=== PATIENT | female | born 1960 | race African-American/Black ===

== ENCOUNTER 2021-08-16 20:05 | Emergency (ER) | payer OTHER ==
[2021-08-16 20:38] VITALS: BP 132/78; PULSE 82; TEMP 97.8; BMI 36.6
[2021-08-16] MEDS ORDERED: LIDOCAINE PATCH REMOVAL MC SCH (22:00)
[2021-08-16] MEDS ORDERED: DIPHTH,PERTUSS(ACELL),TET 0.5 ML DISP.SYRIN IM ONE ×2 (22:42→22:50)
[2021-08-16] MEDS ORDERED: LIDOCAINE 5% TOPICAL PATCH TP ONE (22:43)
[2021-08-16] MEDS ORDERED: LIDOCAINE 5% TOPICAL PATCH ONE (22:49)
== END 2021-08-17 03:25 | disposition home or self-care (01) ==
LOC: JER 20:05
PROC: 2W3DX1Z Immobilization of Left Lower Arm using Splint (ICD-10-PCS; principal; 2021-08-16)
PROC: 3E0234Z Introduction of Serum, Toxoid and Vaccine into Muscle, Percutaneous Approach (ICD-10-PCS; 2021-08-16)
DX: M79.642 Pain in left hand (principal); S80.219A Abrasion, unspecified knee, initial encounter
CPT/HCPCS: 71101-TC-RT-FY; 72125-TC; 73070-TC-RT-FY; 73130-TC-LT-FY; 90715; 99285-25

== ENCOUNTER 2021-10-02 05:34 | Day surgery (SDC) | payer OTHER ==
[2021-09-27 13:44] VITALS: BMI 40.2
[2021-10-02] MEDS ORDERED: ONDANSETRON 4 MG/2 ML VIAL IVPUSH PRN (09:05)
[2021-10-02] MEDS ORDERED: oxyCODONE HCL 5 MG TABLET PO PRN (09:05)
[2021-10-02] MEDS ORDERED: LACTATED RINGERS SOLUTION 1,000 ML IV SCH (09:15)
[2021-10-02] MEDS ORDERED: MIDAZOLAM HCL 2 MG/2 ML SINGLE DOSE VIAL ONE (09:25)
[2021-10-02] MEDS ORDERED: LIDOCAINE HCL 1%, 10 MG/ML (20ML VIAL) NR ONE (09:28)
[2021-10-02] MEDS ORDERED: BUPIVACAINE HCL/PF 0.5% (5 MG/ML) 30 ML VIAL IJ ONE (09:29)
[2021-10-02] MEDS ORDERED: ceFAZolin SODIUM 1 GM VIAL IVPB ONE ×2 (09:30→09:40)
[2021-10-02 14:36] VITALS: BP 150/70; PULSE 80; TEMP 98
== END 2021-10-02 14:15 | disposition home or self-care (01) ==
LOC: JASU-SURG 05:34
PROVIDERS: ATTEND Orthopaedic Surgery
PROC: 0MQ70ZZ Repair Right Hand Bursa and Ligament, Open Approach (ICD-10-PCS; principal; 2021-10-02 09:00)
DX: S53.32XA Traumatic rupture of left ulnar collateral ligament, initial encounter (principal); X58.XXXA Exposure to other specified factors, initial encounter; Y93.9 Activity, unspecified; Y92.9 Unspecified place or not applicable
CPT/HCPCS: 76000-TC-FY; 82962; 94760

== ENCOUNTER 2021-10-21 14:10 | Emergency (ER) | payer OTHER ==
[2021-10-21 14:21] VITALS: BP 122/76; PULSE 78; TEMP 98.2; BMI 40.4
== END 2021-10-21 21:02 | disposition home or self-care (01) ==
LOC: JER 14:10
DX: M79.641 Pain in right hand (principal)
CPT/HCPCS: 99281-25